=== PATIENT | female | born 1985 | race African-American/Black ===

== ENCOUNTER 2018-09-06 09:06 | Day surgery (SDC) | payer MEDICAID ==
[2018-09-06] MEDS ORDERED: Ringers Lactate 1,000 ML IV ONE (09:27)
[2018-09-06] MEDS ORDERED: PROPOFOL 200 MG/20 ML VIAL IV ONE (10:22)
[2018-09-06] MEDS ORDERED: LIDOCAINE 1% MPF 2 ML AMPULE ONE (10:22)
--- NOTE | 2018-09-06 16:59 | OP ---
Surgeon: Yaron Ramesh MD Procedure To Be Performed: Esophagogastroduodenoscopy. Performing Physician: Yaron Ramesh MD. Indication For Procedure: Halitosis, dyspepsia, diarrhea. Plan For Anesthesia: Monitored anesthesia care. Complexity: High due to patient's overall morbidly obese status. Technique: After obtaining informed consent from the patient and explaining risks and complications which include, but are not limited to bleeding, infection, perforation, and anesthesia complication, the patient was placed in a left lateral position and sedation was given. From then on, the scope wa s advanced through the mouth and carefully guided up till the 3rd portion of the duodenum. After the completion of procedure and diagnostic maneuvers, the scope and equipment were withdrawn and procedu re terminated in a safe manner. Findings: Esophagus: No gross lesions seen in the upper and mid esophagus. In the distal esophagus no significant hiatal hernia or erosive esophagitis seen. The Z-line was slightly irregular. Biops ies taken. The GE junction was at 38 cm from the incisors. Stomach: Mild striped erythema seen in the body and antrum. Biopsies taken. Duodenum, the bulb, second and third portion appeared normal. Small bowel biopsies taken to rule out celiac disease. Complications: None. Tolerance To Anesthesia: Excellent. Postoperative Diagnosis: Mild gastritis. Plan: 1.Await pathology results. 2.Follow up in the GI clinic. 3.Further management based on prior studies. May need imaging versus colonoscopy depending on biops y results. US/MODL Voice ID: [id number] Report ID: [id number]
== END 2018-09-06 11:09 | disposition home or self-care (01) ==
LOC: OR 09:06
PROVIDERS: ATTEND Internal Medicine Gastroenterology
PROC: 0DB88ZX Excision of Small Intestine, Via Natural or Artificial Opening Endoscopic, Diagnostic (ICD-10-PCS; 2018-09-06)
PROC: 0DB78ZX Excision of Stomach, Pylorus, Via Natural or Artificial Opening Endoscopic, Diagnostic (ICD-10-PCS; 2018-09-06)
PROC: 0DB58ZX Excision of Esophagus, Via Natural or Artificial Opening Endoscopic, Diagnostic (ICD-10-PCS; principal; 2018-09-06 09:15)
DX: K29.50 Unspecified chronic gastritis without bleeding (principal); E66.01 Morbid (severe) obesity due to excess calories; Z68.44 Body mass index [BMI] 60.0-69.9, adult; R19.6 Halitosis; R19.7 Diarrhea, unspecified; I10 Essential (primary) hypertension; J45.909 Unspecified asthma, uncomplicated; K21.9 Gastro-esophageal reflux disease without esophagitis; F41.1 Generalized anxiety disorder; F32.9 Major depressive disorder, single episode, unspecified; Z79.899 Other long term (current) drug therapy
CPT/HCPCS: 36415; 84703; 88305; 88312; J2001; J2704

== ENCOUNTER 2019-01-10 07:52 | Day surgery (SDC) | payer MEDICAID ==
[2019-01-10] MEDS ORDERED: Ringers Lactate 1,000 ML IV ONE (08:08)
[2019-01-10] MEDS ORDERED: PROPOFOL 200 MG/20 ML VIAL IV ONE ×2 (08:48)
[2019-01-10] MEDS ORDERED: LIDOCAINE 1% MPF 5 ML VIAL ONE (08:49)
[2019-01-10 10:31] VITALS: O2SAT 100
[2019-01-10 10:33] VITALS: BP 118/66
[2019-01-10 10:34] VITALS: TEMP 98
--- NOTE | 2019-01-10 21:39 | OP ---
Surgeon: Yaron Ramesh MD Procedure Performed: Colonoscopy. Performing Physician: Yaron Ramesh MD. Indications For Procedure: Modification of bowel habits, diarrhea, fecal incontinence. Plan For Anesthesia: Monitored anesthesia care. Complexity: High due to patient's comorbidities and BMI, patient has to be done in the hospital. Technique: After obtaining informed consent from the patient and explaining risks and complications which include, but are not limited to bleeding, infection, perforation, and anesthesia complication, patient was placed in a left lateral position and sedation was given. Subsequently, the digital rect al exam was performed and scope was inserted into the rectum and carefully guided up until the termin al ileum, then gradually withdrawn while carefully examining the mucosa. Quality of prep according t o Roberts prep score was 2 + 2 + 2 = 6/9. Scope withdrawal time was 12 minutes. Findings: Digital rectal exam revealed only mildly decreased sphincter tone plus some mild evidence of scarring and some external hemorrhoids. The colonic mucosa from rectum to cecum was normal. A di minutive polyp was seen in the rectum and this was removed with cold biopsy forceps. Random colonic biopsies were taken to rule out microscopic colitis. Terminal ileum was intubated and appeared inna l. Retroflexion revealed grade 1 internal hemorrhoids. Complications: None. Tolerance To Anesthesia: Reasonable. Plan: 1.Await pathology results. 2.Follow up in the GI Clinic in 2 weeks. 3.Repeat colonoscopy in 3-5 years based on pathology. US/MODL Voice ID: [id number] Report ID: [id number]
== END 2019-01-10 10:23 | disposition home or self-care (01) ==
LOC: OR 07:52
PROVIDERS: ATTEND Internal Medicine Gastroenterology
PROC: 0DBE8ZX Excision of Large Intestine, Via Natural or Artificial Opening Endoscopic, Diagnostic (ICD-10-PCS; 2019-01-10)
PROC: 0DBP8ZX Excision of Rectum, Via Natural or Artificial Opening Endoscopic, Diagnostic (ICD-10-PCS; principal; 2019-01-10 09:00)
DX: K62.1 Rectal polyp (principal); K64.8 Other hemorrhoids; K64.4 Residual hemorrhoidal skin tags; K21.9 Gastro-esophageal reflux disease without esophagitis; I10 Essential (primary) hypertension; J45.909 Unspecified asthma, uncomplicated; F41.1 Generalized anxiety disorder; F32.9 Major depressive disorder, single episode, unspecified; E66.01 Morbid (severe) obesity due to excess calories; Z68.43 Body mass index [BMI] 50.0-59.9, adult; Z83.3 Family history of diabetes mellitus; Z82.49 Family history of ischemic heart disease and other diseases of the circulatory system
CPT/HCPCS: 45380; 36415; 84703; 88305; J2704 ×2; J7120

== ENCOUNTER 2019-06-03 | Emergency (ER) | payer MEDICAID ==
--- NOTE | 2019-06-03 14:42 | EDPHYS ---
Physician Documentation [facility] Name: Ana Laura Recio Age: 33 yrs Sex: Female : 1985 Arrival Date: 06/03/2019 Time: 13:53 Bed 18 Private MD: ED Physician Neo Rolon HPI: 06/02 14:35 This 33 yrs old Black Female presents to ER via Ambulatory with complaints of Cold ps1 Symptoms. 14:35 Patient has had symptoms for a week. No respiratory distress. No known COVID contacts. ps1 C/o cough, fatigue. Mom wanted her to get tested. Appears otherwise well. . 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 - Social history:: Smoking status: Patient denies any tobacco usage or history of. ROS: 14:35 Constitutional: Negative for fever, chills, and weight loss. ps1 14:35 Cardiovascular: Negative for chest pain, palpitations, and edema, Abdomen/GI: Negative for abdominal pain, nausea, vomiting, diarrhea, and constipation, MS/Extremity: Negative for injury and deformity, Skin: Negative for injury, rash, and discoloration, Neuro: Negative for headache, weakness, numbness, tingling, and seizure. 14:35 Constitutional: Positive for chills, fatigue, fever. 14:35 Respiratory: Positive for cough. Exam: 14:35 Constitutional: This is a well developed, well nourished patient who is awake, alert, ps1 and in no acute distress. 14:35 Cardiovascular: Rate: normal. 14:35 Respiratory: the patient does not display signs of respiratory distress, Respirations: normal. 14:35 Skin: Appearance: Color: normal in color. 14:35 Neuro: Orientation: appropriate for stated age. Vital Signs: 14:26 BP 148 / 93; Pulse 78; Resp 18; Temp 98.3; Pulse Ox 100% on R/A; Weight 152.41 kg; Pain ph 10/10; MDM: 14:35 Data reviewed: vital signs, nurses notes, and as a result, I will discharge patient. ps1 Counseling: I had a detailed discussion with the patient and/or guardian regarding: the historical points, exam findings, and any diagnostic results supporting the discharge/admit diagnosis, the need for outpatient follow up, to return to the emergency department if symptoms worsen or persist or if there are any questions or concerns that arise at home. 14:41 Patient medically screened. ps1 Administered Medications: No medications were administered Disposition: 06/03/19 14:41 Discharged to Home. Impression: Influenza- like illness, Presumed COVID exposure. - Condition is Stable. - Discharge Instructions: Influenza, Adult. - Prescriptions for Tessalon Perles 100 mg Oral Capsule - take 1 capsule by ORAL route every 8 hours As needed; 15 capsule. - Medication Reconciliation Form, Thank You Letter, Antibiotic Education, Prescription Opioid Use form. - Follow up: Emergency Department; When: As needed; Reason: Fever > 102 F, Trouble breathing, Worsening of condition. Follow up: Private Physician; When: As needed; Reason: Further diagnostic work-up. - Problem is an acute exacerbation. - Symptoms are unchanged. Signatures: Teri Tipton RN RN Leonela Elias Neo Rolon MD MD ps1 Corrections: (The following items were deleted from the chart) 15:06 14:41 06/03/2019 14:41 Discharged to Home. Impression: Influenza- like illness; wh Presumed COVID exposure. Condition is Stable. Forms are Medication Reconciliation Form, Thank You Letter, Antibiotic Education, Prescription Opioid Use. Follow up: Emergency Department; When: As needed; Reason: Fever > 102 F, Trouble breathing, Worsening of condition. Follow up: Private Physician; When: As needed; Reason: Further diagnostic work-up. Problem is an acute exacerbation. Symptoms are unchanged. ps1
--- NOTE | 2019-06-03 14:42 | ER ---
Nurse's Notes [facility] Name: Ana Laura Recio Age: 33 yrs Sex: Female : 1985 Arrival Date: 06/03/2019 Time: 13:53 Bed 18 Private MD: Diagnosis: Influenza- like illness;Presumed COVID exposure Presentation: 06/02 14:26 Chief complaint: Patient states: " I've had a cold for a few days and my family told me ph to come get checked for that virus." Pt reports cough and sore throat, denies fever, chills, or SOB. Coronavirus screen: The patient has NOT traveled to a country currently being monitored by the [facility] within the last 14 days. The patient has NOT had contact with any known and/or suspected case of coronavirus. Ebola Screen: No symptoms or risks identified at this time. Initial Sepsis Screen: Does the patient meet any 2 criteria? No. Patient's initial sepsis screen is negative. Does the patient have a suspected source of infection? No. Patient's initial sepsis screen is negative. Risk Assessment: Do you want to hurt yourself or someone else? Patient reports no desire to harm self or others. 14:26 Method Of Arrival: Ambulatory ph 14:26 Acuity: [place] 4 ph 14:30 Onset of symptoms was June 03, 2019. 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 - Social history:: Smoking status: Patient denies any tobacco usage or history of. Screenin:20 Abuse screen: Denies threats or abuse. Denies injuries from another. Nutritional screening: No deficits noted. Tuberculosis screening: No symptoms or risk factors identified. Fall Risk None identified. Assessment: 14:35 General: Appears in no apparent distress. Behavior is calm, cooperative, appropriate wh for age. Pain: Complains of pain in sore throat. Neuro: Level of Consciousness is awake, alert, obeys commands, Oriented to person, place, time, situation, Appropriate for age. Cardiovascular: Heart tones S1 S2. Respiratory: Reports cough that is Airway is patent Respiratory effort is even, unlabored, Respiratory pattern is regular, symmetrical, Breath sounds are clear bilaterally. GI: Abdomen is round non-distended. : No signs and/or symptoms were reported regarding the genitourinary system. EENT: Throat is pink. Derm: Skin is intact, is healthy with good turgor, Skin is normal, black. Musculoskeletal: Circulation, motion, and sensation intact. Vital Signs: 14:26 BP 148 / 93; Pulse 78; Resp 18; Temp 98.3; Pulse Ox 100% on R/A; Weight 152.41 kg; Pain ph 10/10; ED Course: 13:53 Patient arrived in ED. fj1 14:24 Neo Rolon MD is Attending Physician. ps1 14:27 Triage completed. ph 14:28 Arm band placed on Patient placed in an exam room. ph 14:30 Patient has correct armband on for positive identification. Bed in low position. Call light in reach. Side rails up X 1. Pulse ox on. NIBP on. 15:01 Leonela Elias is Primary Nurse. 15:04 No provider procedures requiring assistance completed. Patient did not have IV access during this emergency room visit. Administered Medications: No medications were administered Outcome: 14:41 Discharge ordered by . ps1 15:04 Discharged to home ambulatory. wh 15:04 Condition: stable 15:04 Discharge instructions given to patient, Instructed on discharge instructions, follow up and referral plans. medication usage, POC Demonstrated understanding of instructions, follow-up care, medications, POC Prescriptions given X 1. 15:06 Patient left the ED. Signatures: Teri Tipton RN RN Leonela Elias Neo Rolon MD MD ps1 Eric Moura fj
== END 2019-06-03 15:06 | disposition home or self-care (01) ==
DX: J11.1 Influenza due to unidentified influenza virus with other respiratory manifestations (principal)
CPT/HCPCS: 99283

== ENCOUNTER 2021-10-19 16:52 | Emergency (ER) | payer OTHER ==
--- OUTSIDE RECORDS SUMMARY | 2021-10-19 16:55 | XMS REPORT | Continuity of Care Document ---
:1985 Author Organization [facility] t Address [address] [place] [address] Care Team Providers Name Role Phone Ben Ochoa Primary Care Physician Darrion GARCIA, Sendsteve K.H. Attending Clinician WAYLON MAIERH. Attending Clinician Unavailable Payers Payer Name Policy Type Policy Number Effective Date Expiration Date S ource Problems Condition Condition Condition Status Onset Resolution Last Treating Co mments Source Name Details Category Date Date Treatment Clinician Date Left knee Left knee Disease Active Uni vers pain pain 1-21 ity of 00:00: [place] 00 Medical Branch Encounter Encounter Disease Active Overview: Univers for for 07-29 Formattin ity of routine routine 00:00: g of this [place] gynecologi gynecologi 00 note Me dical jess jess might be Branch examinatio examinatio different n n from the original. 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 ICD10 Diagnosis Term Fishing Tackle Repairer Utility Attention Attention Disease Active Overview: Univers deficit deficit -16 Formattin ity o f hyperactiv hyperactiv 00:00: g of this [place] ity ity 00 note Medical disorder disorder might be Bran ch (ADHD) (ADHD) different from the original. ICD10 Diagnosis Term Fishing Tackle Repairer Utility Depression Depression Disease Active U nivers -16 ity of 00:00: [place] 00 Medical Branch Morbid Morbid Disease Active Univers obesity obesity -16 ity of 00:00: Medical Branch Genital Genital Disease Active Overview: Univ ers warts warts -16 Formattin ity of 00:00: g of this 00 note Medical might be Branch different from the original. Last outbreak 2009 Immune to Immune to Disease Active Uni vers rubella rubella 16 ity of 00:00: Medical Branch Acanthosis Acanthosis Disease Active U nivers nigricans nigricans 16 ity of 00:00: 00 Medical Branch Allergies, Adverse Reactions, Alerts Allergy Allergy Status Severity Reaction(s) Onset Inactive Treating Comm ents Source Name Type Date Date Clinician NO KNOWN Drug Active Univers ALLERGIE Class ity of S [facility] Social History Social Habit Start Date Stop Date Quantity Comments Source History SDOH University o f Alcohol Frequency [place] M edical Branch History SDOH University o f Alcohol Std [place] Medical Drinks Branch History SDOH University o f Alcohol Binge [place] Medic al Branch Exposure to Not sure [facility] SARS-CoV-2 [facility] (event) Branch Alcohol intake 2021-03-20 2021-03-20 Current drinker Unive rsity of 00:00:00 00:00:00 of alcohol [facility] (finding) [place] Alcohol Comment 2012-07-29 2012-07-29 Social drinking Univ ersity of 00:00:00 00:00:00 [facility] Tobacco use and 2010-10-01 2010-10-01 Never used Universit y of exposure 00:00:00 00:00:00 [facility] Sex Ass[birth year] At [birth year] Universit y of 00:00:00 00:00:00 [facility] Smoking Status Start Date Stop Date Source Never smoker [facility] Medications Ordered Filled Start Stop Current Ordering Indication Dosage Frequency Signature Comments Components Source Medication Medication Date Date Medication? Clinician (SIG) Name Name NIFEdipine Yes [id number] 30mg Take 1 U nivers XL 30 mg 24 5-13 tablet by ity of hr tablet 00:00: mouth 2 (two) Medical times Branch daily. ARIPiprazol 2021- No 15mg Take 15 mg Univers e (ABILIFY) 03-20 by mouth ity of 15 mg 11:12: 00:00 daily. [place] tablet 38 :00 Medical Branch ARIPiprazol 2021- No 15mg Take 15 mg Univers e (ABILIFY) 03-20 by mouth ity of 15 mg 11:12: 00:00 daily. [place] tablet 38 :00 Medical Branch NIFEdipine 2021- No [id number] 30mg Take 1 Univers XL 30 mg 24 03-20 tablet by it y of hr tablet 00:00: 04:59 [place] (two) Medical times Branch daily for 90 days. NIFEdipine 2021- No [id number] 30mg Take 1 Univers XL 30 mg 24 03-20 tablet by it y of hr tablet 00:00: 04:59 [place] (two) Medical times Branch daily for 90 days. ABILIFY 2020-03 Yes 300mg 300 mg by Univ ers MAINTENA 2-30 Intramuscu ity o f 300 mg sers 00:00: lar route [place] 00 once every Medical month. Branch ABILIFY 2020-03 Yes 300mg 300 mg by Univ ers MAINTENA 2-30 Intramuscu ity o f 300 mg sers 00:00: lar route [place] 00 once every Medical month. Branch ABILIFY 2020-03 Yes 300mg 300 mg by Univ ers MAINTENA 2-30 Intramuscu ity o f 300 mg sers 00:00: lar route [place] 00 once every Medical month. Branch albuterol Yes 1{ampul Use 1 Univ ers 2.5 mg/0.5 6-09 e} Ampule as ity of mL 10:32: directed [place] nebulizer 59 every 6 Medical solution (six) Branch hours as needed for Wheezing. albuterol Yes 1{ampul Use 1 Univ ers 2.5 mg/0.5 6-09 e} Ampule as ity of mL 10:32: directed [place] nebulizer 59 every 6 Medical solution (six) Branch hours as needed for Wheezing. albuterol Yes 1{ampul Use 1 Univ ers 2.5 mg/0.5 6-09 e} Ampule as ity of mL 10:32: directed [place] nebulizer 59 every 6 Medical solution (six) Branch hours as needed for Wheezing. lithium Yes 450mg Take 450 Unive rs carbonate 1-09 mg by ity of CR 450 mg 00:00: [place] tablet 00 bedtime. Medica l Branch lithium Yes 450mg Take 450 Unive rs carbonate 1-09 mg by ity of [place] 450 mg 00:00: [place] tablet 00 bedtime. Medica l Branch lithium Yes 450mg Take 450 Unive rs carbonate 1-09 mg by ity of [place] 450 mg 00:00: [place] tablet 00 bedtime. Medica l Branch Immunizations Ordered Filled Immunization Date Status Comments Sour e Immunization Name Name [facility] 2011-12-23 Completed University of 00:00:00 [facility] 2011-12-23 Completed University of 00:00:00 [facility] 2011-12-23 Completed University of 00:00:00 [facility] Rubella 2007-01-07 Completed University of 00:00:00 [facility] Rubella 2007-01-07 Completed University of 00:00:00 [facility] Rubella 2007-01-07 Completed University of 00:00:00 [facility] Vital Signs Vital Name Observation Time Observation Value Comments Source Systolic blood 2021-03-20 16:49:00 142 mm[Hg] [facility] pressure [facility] Diastolic blood 2021-03-20 16:49:00 104 mm[Hg] [facility] pressure [facility] Heart rate 2021-03-20 16:49:00 83 /min [facility] Oxygen saturation 2021-03-20 16:49:00 98 /min [facility] in Arterial blood [facility] anch by Pulse oximetry Body height 2021-03-20 16:35:00 157.5 cm [facility] Body weight 2021-03-20 16:35:00 174.816 kg [facility] BMI 2021-03-20 16:35:00 70.49 kg/m2 [facility] Procedures This patient has no known procedures. Encounters Start End Encounter Admission Attending Care Care Encounter Source Date/Time Date/Time Type Type Clinicians Facility Department ID 2021-07-11 2021-07-11 Telephone [facility] [id number] Univers 00:00:00 00:00:00 Sendil Marquez MARSHALL [id number] ity of [facility] [id number] PROF[place] [id number] [place] dic[address] 2021-03-20 2021-03-20 Office [facility] [id number] Univers 11:30:00 11:30:00 Visit Sendil Marquez MARSHALL [id number] ity of [facility] [id number] [id number] [place] 2021-03-20 2021-03-20 [facility] [id number] Univers 11:30:00 11:05:57 SENDIL [facility] Results Test Description Test Time Test Comments Results Result Comments Source SARS-CoV-2 (COVID-19), RT-PCR/TMA 2021-03-24 17:22:59 Test Item Value Reference Range Interpretation Comme nts SARS-CoV-2 INTERPRETATION POSITIVE SEE NOTE A S ARS-CoV-2 RNA DETECTEDPositive (test code = 07128) results are indicative of the presence of NANDO S-CoV-2 RNA;clinical co rrelation with patient history and other diagnosticinfor mation is necessary to de termine patient infection statu s.Positive results do not rule out bacterial infection or co -infectionwith other viruses. Positive and negative predic tive values oftesting are h ighly dependent on prevalence. SOURCE (test code = 93137) NASOPHARYNGEAL Note: Methodology is [employer] Real-Time RT-PC R. The expected result or refer ence range is NEGATIVE (Not D etected). For more information reg arding COVID-19 testing to incl ude clinicalinforma tion, methodology detail, intende d use, FDA authorization a ndrecommended fact sheets for molly ents or healthcare providers, see NewTest Announcement: S ARS-CoV-2 (COVID-19) by N AAT at URL below (note,fact shee ts are provided by method given in report:https:// www.cpllabs.com/cl inicians/client -communications/ Alternatively, see downloadable PDF fact sheet at:https://www. MiNOWireless/COVID- 19-RT-PCR UNLES S OTHERWISE INDICATED, ALL TESTING PERFORMED [facility], [facility]. 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 CLIA NUMBER [id number] [employer] N O. [id number]
[2021-10-19] MEDS ORDERED: METHYLPREDNISOLONE 125 MG INJ ONE (17:26)
[2021-10-19] MEDS ORDERED: DIPHENHYDRAMINE 50 MG/ML VIAL ONE (17:26)
--- NOTE | 2021-10-19 18:00 | ER ---
Nurse's Notes [facility] Name: Ana Laura Recio Age: 36 yrs Sex: Female : 1985 Arrival Date: 10/19/2021 Time: 17:01 Bed 12 Private MD: Diagnosis: Allergic contact dermatitis, unspecified cause Presentation: 10/19 17:07 Chief complaint: Patient states: last Tres the left side of her jaw started to swell bm7 and it has not gone away. patient states she is here to be evaluated due to concern. Patient denies any trauma to the area. Coronavirus screen: At this time, the client does not indicate any symptoms associated with coronavirus-19. Ebola Screen: No symptoms or risks identified at this time. Initial Sepsis Screen: Does the patient meet any 2 criteria? No. Patient's initial sepsis screen is negative. Does the patient have a suspected source of infection? No. Patient's initial sepsis screen is negative. Risk Assessment: Do you want to hurt yourself or someone else? Patient reports no desire to harm self or others. Onset of symptoms was October 11, 2021. 17:07 Method Of Arrival: Ambulatory bm7 17:07 Acuity: [place] 4 bm7 Triage Assessment: 17:09 General: Appears in no apparent distress. Behavior is calm, cooperative, appropriate bm7 for age. Pain: Complains of pain in left jaw Pain began gradually, one week ago. Neuro: Level of Consciousness is awake, alert, obeys commands, Oriented to person, place, time, situation, Appropriate for age Moves all extremities. Gait is steady, Speech is normal. Cardiovascular: Patient's skin is warm and dry. Respiratory: Airway is patent Respiratory effort is even, unlabored. Musculoskeletal: Swelling present in left jaw. 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 Flu vaccine is up to date. - Social history:: Smoking status: Patient denies any tobacco usage or history of. Screenin:10 Abuse screen: Denies threats or abuse. Nutritional screening: No deficits noted. bm7 Tuberculosis screening: No symptoms or risk factors identified. 17:22 Fall Risk None identified. bm7 Assessment: 17:22 General: Appears in no apparent distress. comfortable, obese, well groomed, Behavior is bm7 calm, cooperative, appropriate for age. Pain: Complains of pain in left jaw Pain does not radiate. Neuro: No deficits noted. Cardiovascular: No deficits noted. Respiratory: No deficits noted. GI: No deficits noted. No signs and/or symptoms were reported involving the gastrointestinal system. : No deficits noted. No signs and/or symptoms were reported regarding the genitourinary system. EENT: Oral mucosa is moist. Reports pain in left jaw when swallowing Denies difficulty swallowing. Derm: No deficits noted. No signs and/or symptoms reported regarding the dermatologic system. Musculoskeletal: No deficits noted. No signs and/or symptoms reported regarding the musculoskeletal system. 17:55 Reassessment: Patient and/or family updated on plan of care and expected duration. Pain bm7 level reassessed. Patient is alert, oriented x 3, equal unlabored respirations, skin warm/dry/pink. Vital Signs: 17:07 BP 145 / 97; Pulse 81; Temp 98.8; Pulse Ox 99% ; Weight 138.8 kg; Height 5 ft. 2 in. bm7 (157.48 cm); 18:03 BP 180 / 78; Pulse 82; Resp 18; Pulse Ox 100% on R/A; bm7 17:07 Body Mass Index 55.97 (138.80 kg, 157.48 cm) bm7 ED Course: 17:01 Patient arrived in ED. am2 17:08 Triage completed. bm7 17:10 Arm band placed on left wrist. bm7 17:11 Audrey Webster, RN is Primary Nurse. bm7 17:11 Germán Lewis is PHCP. jl9 17:11 Alec Kauffman MD is Attending Physician. jl9 17:22 No apparent distress. Resting quietly. Awaiting ED provider evaluation. bm7 17:22 Patient has correct armband on for positive identification. Call light in reach. Client bm7 placed on continuous cardiac and pulse oximetry monitoring. NIBP monitoring applied. 17:22 No provider procedures requiring assistance completed. bm7 18:02 Patient did not have IV access during this emergency room visit. bm7 Administered Medications: 17:22 Drug: Benadryl (diphenhydrAMINE) 50 mg Route: IM; Site: right gluteus; bm7 18:03 Follow up: Response: No adverse reaction bm7 17:22 Drug: SOLU-Medrol (methylPREDNISolone sodium succinate) 125 mg Route: IM; Site: left bm7 gluteus; 18:03 Follow up: Response: No adverse reaction bm7 Medication: 17:22 VIS not applicable for this client. bm7 Outcome: 18:00 Discharge ordered by MD. pham 18:02 Discharged to home ambulatory. bm7 18:02 Condition: good 18:02 Discharge instructions given to patient, Instructed on discharge instructions, follow up and referral plans. Demonstrated understanding of instructions, follow-up care. 18:03 Patient left the ED. bm7 Signatures: Nereyda Fernandez Brittany, RN RN bm7 Germán Lewis9
--- NOTE | 2021-10-19 18:00 | EDPHYS ---
Physician Documentation [facility] Name: Ana Laura Recio Age: 36 yrs Sex: Female : 1985 Arrival Date: 10/19/2021 Time: 17:01 Bed 12 Private MD: REID Physician Alec Kauffman HPI: 10/19 17:56 This 36 yrs old Black Female presents to ER via Ambulatory with complaints of jaw jl9 swelling. Started after eating a new spice. . 17:56 Onset: The symptoms/episode began/occurred yesterday. Associated signs and symptoms: jl9 Pertinent positives: Pertinent negatives: chest pain, shortness of breath. Modifying factors: The patient symptoms are alleviated by nothing, the patient symptoms are aggravated by nothing. 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 Flu vaccine is up to date. - Social history:: Smoking status: Patient denies any tobacco usage or history of. ROS: 17:57 Constitutional: Negative for fever, chills, and weight loss, Eyes: Negative for injury, jl9 pain, redness, and discharge, ENT: Negative for injury, pain, and discharge. 17:57 Cardiovascular: Negative for chest pain, palpitations, and edema, Respiratory: Negative for shortness of breath, cough, wheezing, and pleuritic chest pain, Abdomen/GI: Negative for abdominal pain, nausea, vomiting, diarrhea, and constipation, Back: Negative for injury and pain, : Negative for injury, bleeding, discharge, and swelling, MS/Extremity: Negative for injury and deformity, Skin: Negative for injury, rash, and discoloration, Neuro: Negative for headache, weakness, numbness, tingling, and seizure, Psych: Negative for depression, anxiety, suicide ideation, homicidal ideation, and hallucinations, Allergy/Immunology: Negative for hives, rash, and allergies, Endocrine: Negative for neck swelling, polydipsia, polyuria, polyphagia, and marked weight changes, Hematologic/Lymphatic: Negative for swollen nodes, abnormal bleeding, and unusual bruising. 17:57 Neck: Positive for swelling, Negative for Exam: 17:58 Constitutional: This is a well developed, well nourished patient who is awake, alert, jl9 and in no acute distress. Head/Face: Normocephalic, atraumatic. Slight swelling to upper neck and around lips. Eyes: Pupils equal round and reactive to light, extra-ocular motions intact. Lids and lashes normal. Conjunctiva and sclera are non-icteric and not injected. Cornea within normal limits. Periorbital areas with no swelling, redness, or edema. ENT: Mucous membranes moist. Neck: Trachea midline, no thyromegaly or masses palpated, and no cervical lymphadenopathy. Supple, full range of motion without nuchal rigidity, or vertebral point tenderness. No Meningismus. Chest/axilla: Normal chest wall appearance and motion. Nontender with no deformity. No lesions are appreciated. Cardiovascular: Regular rate and rhythm with a normal S1 and S2. No gallops, murmurs, or rubs. Normal PMI, no JVD. No pulse deficits. Respiratory: Lungs have equal breath sounds bilaterally, clear to auscultation and percussion. No rales, rhonchi or wheezes noted. No increased work of breathing, no retractions or nasal flaring. Abdomen/GI: Soft, non-tender, with normal bowel sounds. No distension or tympany. No guarding or rebound. No evidence of tenderness throughout. Back: No spinal tenderness. No costovertebral tenderness. Full range of motion. Skin: Warm, dry with normal turgor. Normal color with no rashes, no lesions, and no evidence of cellulitis. MS/ Extremity: Pulses equal, no cyanosis. Neurovascular intact. Full, normal range of motion. Neuro: Awake and alert, GCS 15, oriented to person, place, time, and situation. Cranial nerves II-XII grossly intact. Motor strength 5/5 in all extremities. Sensory grossly intact. Cerebellar exam normal. Normal gait. Psych: Awake, alert, with orientation to person, place and time. Behavior, mood, and affect are within normal limits. Vital Signs: 17:07 BP 145 / 97; Pulse 81; Temp 98.8; Pulse Ox 99% ; Weight 138.8 kg; Height 5 ft. 2 in. bm7 (157.48 cm); 18:03 BP 180 / 78; Pulse 82; Resp 18; Pulse Ox 100% on R/A; bm7 17:07 Body Mass Index 55.97 (138.80 kg, 157.48 cm) 7 MDM: 17:11 Patient medically screened. jl9 18:00 Data reviewed: vital signs, nurses notes. Counseling: I had a detailed discussion with jl9 the patient and/or guardian regarding: the historical points, exam findings, and any diagnostic results supporting the discharge/admit diagnosis, the need for outpatient follow up, to return to the emergency department if symptoms worsen or persist or if there are any questions or concerns that arise at home. Administered Medications: 17:22 Drug: Benadryl (diphenhydrAMINE) 50 mg Route: IM; Site: right gluteus; 7 18:03 Follow up: Response: No adverse reaction 7 17:22 Drug: SOLU-Medrol (methylPREDNISolone sodium succinate) 125 mg Route: IM; Site: left bm7 gluteus; 18:03 Follow up: Response: No adverse reaction 7 Disposition Summary: 10/19/21 18:00 Discharge Ordered Location: Home jl9 Condition: Stable jl9 Diagnosis - Allergic contact dermatitis, unspecified cause jl9 Followup: jl9 - With: Private Physician - When: 1 - 2 days - Reason: Recheck today's complaints, Continuance of care, Re-evaluation by your physician Discharge Instructions: - Discharge Summary Sheet jl9 - Allergies, Adult jl9 Forms: - Medication Reconciliation Form jl9 - Thank You Letter jl9 - Antibiotic Education jl9 - Prescription Opioid Use jl9 Signatures: Audrey Webster, RN RN 7 Germán Lewis jl9
[2021-10-19 18:44] VITALS: TEMP 98.8
[2021-10-19 18:46] VITALS: BP 180/78; O2SAT 100
== END 2021-10-19 18:03 | disposition home or self-care (01) ==
LOC: ER 16:52
DX: L23.9 Allergic contact dermatitis, unspecified cause (principal); F20.9 Schizophrenia, unspecified
CPT/HCPCS: 96372; 99283; J1200; J2930